=== PATIENT | female | born 1995 ===

== ENCOUNTER 2017-02-12 10:01 | Emergency (ER) | payer OTHER ==
[2017-02-12] MEDS ORDERED: Ibuprofen TAB* 600 MG PO ONE (11:02)
--- NOTE | 2017-02-12 11:06 | UC ---
Lower Extremity/Ankle HPI - HPI Summary HPI Summary: Tripped going upstairs last night and hurt R ankle. Pt was drinking but it hurt at the time, then she was able to walk around on it for the rest of the night but hurt more while in bed and this morning. Is walking with difficulty. - History of Current Complaint Chief Complaint: UCLowerExtremity Stated Complaint: ANKLE INJURY Time Seen by Provider: 02/12/17 10:54 Hx Obtained From: Patient Hx Last Menstrual Period: 02/12/17 ON IMPLAN ?: No Onset/Duration: Sudden Onset Severity Initially: Moderate Severity Currently: Moderate Aggravating Factor(s): Standing, Ambulation Alleviating Factor(s): Rest Able to Bear Weight: Yes - Allergies/Home Medications Allergies/Adverse Reactions: Allergies Allergy/AdvReac Type Severity Reaction Status Date / Time No Known Allergies Allergy Verified 02/12/17 10:36 Home Medications: Home Medications Acetaminophen [Tylenol] 02/12/17 [History] Etonogestrel [Nexplanon] 02/12/17 [History] PMH/Surg Hx/FS Hx/Imm Hx Endocrine History Of: Denies: Diabetes, Thyroid Disease Cardiovascular History Of: Denies: Cardiac Disorders, Hypertension Respiratory History Of: Denies: COPD, Asthma GI/ History Of: Denies: Ulcer - Surgical History Surgical History: Yes Surgery Procedure, Year, and Place: BREST LUMP REMOVED-BENIGN 04/2016 - Family History Known Family History: Negative: Blood Disorder - Social History Occupation: Student Lives: Alone Alcohol Use: Weekly Substance Use Type: None Smoking Status (MU): Never Smoked Tobacco Review of Systems Constitutional: Negative Skin: Negative Eyes: Negative ENT: Negative Respiratory: Negative Cardiovascular: Negative Gastrointestinal: Negative Genitourinary: Negative Motor: Negative Neurovascular: Negative Musculoskeletal: Arthralgia - R ankle injury Neurological: Negative Psychological: Negative All Other Systems Reviewed And Are Negative: Yes Physical Exam Triage Information Reviewed: Yes Appearance: Well-Appearing, Well-Nourished Vital Signs: Initial Vital Signs Temp 98.8 F 02/12/17 10:31 Pulse 103 02/12/17 10:31 Resp 16 02/12/17 10:31 BP 136/86 02/12/17 10:31 Pulse Ox 98 02/12/17 10:31 Vital Signs Reviewed: Yes Eye Exam: Normal Eyes: Positive: Conjunctiva Clear ENT Exam: Normal ENT: Positive: Normal ENT inspection, Hearing grossly normal, Pharynx normal, TMs normal Dental Exam: Normal Neck exam: Normal Neck: Positive: Supple, Nontender, No Lymphadenopathy Respiratory Exam: Normal Respiratory: Positive: Chest non-tender, Lungs clear, Normal breath sounds, No respiratory distress, No accessory muscle use Cardiovascular Exam: Normal Cardiovascular: Positive: RRR, No Murmur Musculoskeletal Exam: Other - diffuse pain, some tenderness over R lateral malleolus Musculoskeletal: Positive: ROM Limited @ - R ankle Neurological Exam: Normal Neurological: Positive: Alert Psychological Exam: Normal Skin Exam: Normal Lower Extremity Course/Dx - Differential Dx/Diagnosis Provider Diagnoses: R ankle sprain. elevated blood pressure due to pain Discharge - Discharge Plan Condition: Stable Disposition: HOME Patient Education Materials: Ankle Sprain (ED) Referrals: Rene Greenfield MD [Medical Doctor] - If Needed Additional Instructions: Use the splint as long as you need until you can walk without pain. If you have significant pain or difficulty with normal tasks after about 10 days, I recommend you see your primary care provider or an orthopedist for a recheck. Ice, elevation, and ibuprofen can all help control your pain in the early days.
--- NOTE | 2017-02-12 11:37 | RAD ---
INDICATION: Right lateral ankle swelling after twisting injury the previous day COMPARISON: None. TECHNIQUE: 3 views of the right ankle were obtained. FINDINGS: There is moderate soft tissue swelling overlying the fibular malleolus. The bones are normal alignment. Joint spaces appear maintained. No fracture is seen. IMPRESSION: MODERATE SOFT TISSUE SWELLING OVERLYING THE FIBULAR MALLEOLUS WITHOUT RADIOGRAPHICALLY APPARENT FRACTURE OR DISLOCATION. If the patient's symptoms persist, follow-up imaging is recommended.
== END 2017-02-12 12:02 | disposition home or self-care (01) ==
LOC: UCEAST 10:01
DX: S93.401A Sprain of unspecified ligament of right ankle, initial encounter (principal); W18.49XA Other slipping, tripping and stumbling without falling, initial encounter; R03.0 Elevated blood-pressure reading, without diagnosis of hypertension; R52 Pain, unspecified
CPT/HCPCS: 99203; A9270-GY; G0463